=== PATIENT | female | born 1950 | race Caucasian/White ===

== ENCOUNTER 2017-03-23 18:05 | Emergency (ER) | payer OTHER ==
[~2017-03-23] VITALS: Ht 157.5 cm; Wt 84.9 kg
[2017-03-23 20:08] LABS: HEMATOCRIT 42.9 % (36.0-46.0); MCH 27.9 PG (29.0-34.0); MCHC 32.9 G/DL (30.0-36.0); MCV 84.8 FL (83-99); PLATELET COUNT 180 K/uL (156-360); RBC DIS.WIDTH-CV 13.3 % (11.8-14.6); RBC DIS.WIDTH-SD 41.3 % (39-53); RED BLOOD COUNT 5.06 M/uL (3.80-5.20); WHITE BLOOD COUNT 5.9 K/uL (4.1-10.2)
[2017-03-23 20:21] LABS: CHLORIDE 105 mEq/L (99-109); POTASSIUM 3.1 mEq/L (3.7-5.4); SODIUM 140 mEq/L (136-147)
[2017-03-23 20:24] LABS: GLUCOSE 92 mg/dL (70-99)
[2017-03-23 20:25] LABS: ANION GAP 10 MEQ/L (2-14)
[2017-03-23 20:26] LABS: TOTAL BILIRUBIN 0.4 mg/dL (0.0-1.0)
[2017-03-23 20:27] LABS: ALKALINE PHOSPHATASE 77 IU/L (3-129); GFR ESTIMATE (CALCULATED) > 59 mL/min/
[2017-03-23 20:28] LABS: UREA NITROGEN (BUN) 10 mg/dL (9-23)
[2017-03-23 20:31] LABS: LIPASE 28 U/L (1.0-51.0)
[2017-03-23 21:06] LABS: ADD MIUA? YES; BILIRUBIN NEGATIVE; BLOOD NEGATIVE; COLOR YELLOW ((YELLOW)); GLUCOSE (STRIP) NEGATIVE; KETONES 5; LEUKOCYTES TRACE; NITRITE NEGATIVE; PROTEIN (STRIP) 30; SPECIFIC GRAVITY 1.032 (1.000-1.030); UROBILINOGEN 0.2 MG/DL (0.2-1.0)
[2017-03-23 22:42] VITALS: BP 142/76
[2017-03-23 22:58] LABS: BACTERIA NONE SEEN /HPF; EPITHELIAL CELLS RARE /HPF; HYALINE CASTS 0-5 /LPF; MUCUS 4+ /LPF; RED BLOOD CELLS 0-5 /HPF (0-5); UCUL ADDED? NO; WHITE BLOOD CELLS 0-5 /HPF (0-5)
== END 2017-03-23 22:45 | disposition home or self-care (01) ==
LOC: EME 18:05 → RME 18:05
DX: R19.7 Diarrhea, unspecified (principal); B34.9 Viral infection, unspecified; E87.6 Hypokalemia; Z87.891 Personal history of nicotine dependence
CPT/HCPCS: 74022; 80053; 81003; 83690; 85027; 99281; 99285; J7030